=== PATIENT | female | born 1970 | race Caucasian/White ===

== ENCOUNTER → 2017-08-18 | Outpatient (CLI) | payer BC, OTHER | END | disposition home or self-care (01) | LOC: NUC 07-30 07:00 | DX: R13.10 Dysphagia, unspecified (principal) | CPT/HCPCS: 78264; A9541 ==

== ENCOUNTER 2017-11-16 12:10 | Emergency (ER) | payer BC, OTHER ==
[~2017-11-16] VITALS: Ht 170.2 cm; Wt 90.5 kg
[2017-11-16 12:57] LABS: BASOPHIL (%) 0.5 % (0-1); EOSINOPHIL (%) 1.9 % (0-5); EOSINOPHIL COUNT 0.1 K/uL (0-0.3); HEMATOCRIT 38.1 % (36.0-46.0); IMMATURE GRANULOCYTE (%) 0.5 % (0.0-0.7); LYMPHOCYTE (%) 25.2 % (15-42); LYMPHOCYTE COUNT 1.6 K/uL (1.0-2.8); MCH 30.1 PG (29.0-34.0); MCHC 34.1 G/DL (30.0-36.0); MCV 88.2 FL (83-99); MONOCYTE (%) 6.8 % (3-12); MONOCYTE COUNT 0.4 K/uL (0-0.8); NEUTROPHIL (%) 65.1 % (45-76); PLATELET COUNT 185 K/uL (156-360); RBC DIS.WIDTH-CV 12.6 % (11.8-14.6); RBC DIS.WIDTH-SD 40.8 % (39-53); RED BLOOD COUNT 4.32 M/uL (3.80-5.20); WHITE BLOOD COUNT 6.2 K/uL (4.1-10.2)
[2017-11-16 13:05] LABS: ALBUMIN 4.3 g/dL (3.2-4.8)
[2017-11-16 13:06] LABS: CHLORIDE 106 mEq/L (99-109); POTASSIUM 4.6 mEq/L (3.7-5.4); SODIUM 138 mEq/L (136-147)
[2017-11-16 13:08] LABS: GLUCOSE 90 mg/dL (70-99); TOTAL PROTEIN 6.8 g/dL (6.4-8.3)
[2017-11-16 13:10] LABS: TOTAL BILIRUBIN 0.5 mg/dL (0.0-1.0)
[2017-11-16 13:11] LABS: ALKALINE PHOSPHATASE 80 IU/L (3-129)
[2017-11-16 13:12] LABS: CREATININE 0.8 mg/dL (0.6-1.3); GFR ESTIMATE (CALCULATED) > 59 mL/min/
[2017-11-16 13:13] LABS: AST (GOT) 20 IU/L (2-34); UREA NITROGEN (BUN) 10 mg/dL (9-23)
[2017-11-16 13:14] LABS: ALT (GPT) 16 IU/L (3-49)
[2017-11-16 13:46] LABS: ERTH.SED.RATE 4 MM/HR (0-20)
[2017-11-16] MEDS ORDERED: PREDNISONE50 MG PO (16:15)
[2017-11-16 16:49] VITALS: BP 122/66
== END 2017-11-16 17:29 | disposition home or self-care (01) ==
LOC: RME 12:10 → EME 12:10 → RME 17:29
PROVIDERS: Nurse Practitioner Family
DX: M54.16 Radiculopathy, lumbar region (principal); M48.061 Spinal stenosis, lumbar region without neurogenic claudication; M79.7 Fibromyalgia; M06.9 Rheumatoid arthritis, unspecified; K21.9 Gastro-esophageal reflux disease without esophagitis; J45.909 Unspecified asthma, uncomplicated; G25.81 Restless legs syndrome; F32.9 Major depressive disorder, single episode, unspecified; Z98.1 Arthrodesis status; Z90.49 Acquired absence of other specified parts of digestive tract; Z88.5 Allergy status to narcotic agent; Z88.6 Allergy status to analgesic agent; Z88.8 Allergy status to other drugs, medicaments and biological substances
CPT/HCPCS: 72148; 80053; 85025; 85651; 99281; 99285